=== PATIENT | female | born 1975 ===

== ENCOUNTER 2021-08-07 07:05 | Inpatient (IN) | payer BC ==
[2021-08-07] MEDS ORDERED: Celecoxib 200 MG Cap PO ONE (07:30)
[2021-08-07] MEDS ORDERED: Scopolamine 1.5 MG Transdermal Patch TOP ONE (07:30)
[2021-08-07] MEDS ORDERED: Acetaminophen 500 MG Tab PO ONE (07:30)
[2021-08-07] MEDS ORDERED: fentaNYL 250 MCG/5 ML SDV ONE (08:09)
[2021-08-07] MEDS ORDERED: Dexamethasone 4 MG/ML SDV ONE (08:09)
[2021-08-07] MEDS ORDERED: Rocuronium 50 MG/5 ML Vial ONE (08:09)
[2021-08-07] MEDS ORDERED: Neostigmine Methylsulfate 1 MG/ML 5 ML Syringe ONE (08:09)
[2021-08-07] MEDS ORDERED: Glycopyrrolate 0.2 MG/ML 5 ML MDV ONE (08:09)
[2021-08-07] MEDS ORDERED: Ondansetron 4 MG/2 ML SDV ONE (08:09)
[2021-08-07] MEDS ORDERED: Succinylcholine 200 MG/10 ML MDV ONE (08:09)
[2021-08-07] MEDS ORDERED: Propofol 200 MG/20 ML SDV ONE (08:09)
[2021-08-07] MEDS ORDERED: Lactated Ringers 1,000 ML ONE ×3 (08:09→10:01)
[2021-08-07] MEDS ORDERED: Midazolam 1 MG/ML 2 ML SDV ONE (08:10)
[2021-08-07] MEDS ORDERED: Dextrose 5%-Lactated Ringers 1,000 ML IV SCH (08:30)
[2021-08-07] MEDS ORDERED: cefOXitin 2 GM Vial ONE (08:45)
[2021-08-07] MEDS ORDERED: Ketamine 19 MG in Sodium Chloride 0.9% 19.81 ML IV SCH (08:45)
[2021-08-07] MEDS ORDERED: Albuterol/Ipratropium 3.0-0.5 MG/3 ML Neb Soln NEB ONE (08:45)
[2021-08-07] MEDS ORDERED: Magnesium Sulfate 3.5 GM in Sodium Chloride 0.9% 100 ML IV SCH (08:45)
[2021-08-07] MEDS ORDERED: Ketamine 500 MG/5 ML MDV IV SCH (08:45)
[2021-08-07] MEDS ORDERED: Magnesium Sulfate 3.8 GM in Sodium Chloride 0.9% 250 ML IV ONE (08:45)
[2021-08-07] MEDS ORDERED: cefOXitin 2 GM in Sodium Chloride 0.9% 50 ML IV ONE (08:45)
[2021-08-07] MEDS ORDERED: fentaNYL 100 MCG/2 ML SDV IVPUSH ONE (11:01)
[2021-08-07] MEDS ORDERED: hydrOXYzine HCL 100 MG/2 ML SDV IM ONE (11:01)
[2021-08-07] MEDS ORDERED: Cyclobenzaprine 10 MG Tab PO PRN (12:20)
[2021-08-07] MEDS ORDERED: Fluticasone Propionate Nasal Spray 16 GM Bottle NASBOTH PRN (12:30)
[2021-08-07] MEDS ORDERED: Ondansetron 4 MG/2 ML SDV IVPUSH PRN (13:00)
[2021-08-07] MEDS ORDERED: Albuterol/Ipratropium 3.0-0.5 MG/3 ML Neb Soln INH PRN (13:00)
[2021-08-07] MEDS ORDERED: HYDROmorphone 1 MG/ML Syringe IV PRN (13:00)
[2021-08-07] MEDS ORDERED: Labetalol 20 MG/4 ML Syringe IVPUSH PRN (13:00)
[2021-08-07] MEDS ORDERED: HYDROmorphone 0.5 MG/0.5 ML Syringe IVPUSH PRN (13:00)
[2021-08-07] MEDS ORDERED: hydrOXYzine HCL 100 MG/2 ML SDV IM PRN (13:00)
[2021-08-07] MEDS ORDERED: Metoclopramide 10 MG/2 ML SDV IVPUSH PRN (13:00)
[2021-08-07] MEDS ORDERED: Calcium Gluconate 10% 1 GM/10 ML SDV IVPUSH PRN (13:00)
[2021-08-07] MEDS ORDERED: Acetaminophen 500 MG Tab PO PRN (13:00)
[2021-08-07] MEDS ORDERED: diphenhydrAMINE 50 MG/ML SDV IVPUSH PRN (13:00)
[2021-08-07] MEDS ORDERED: traMADol 50 MG Tab PO PRN (13:00)
[2021-08-07] MEDS ORDERED: oxyCODONE 5 MG Tab PO PRN (13:00)
[2021-08-07] MEDS: cefOXitin 2 GM in Sodium Chloride 0.9% 50 ML IV SCH ×2 (14:25→21:50)
[2021-08-07] MEDS: Dextrose 5%-Lactated Ringers 1,000 ML IV SCH (14:26)
[2021-08-07] MEDS: Albuterol/Ipratropium 3.0-0.5 MG/3 ML Neb Soln INH SCH ×2 (14:44→21:50)
[2021-08-07] MEDS: Acetaminophen 500 MG Tab PO SCH (15:49)
[2021-08-07] MEDS ORDERED: MVI, Adult with Vitamin K 10 ML, Thiamine 200 MG, Zinc/Copper/Manganese/Selenium 1 ML i... IV SCH ×4 (16:00)
[2021-08-07] MEDS ORDERED: Pantoprazole 40 MG Vial IVPUSH SCH (16:00)
[2021-08-07] MEDS: Heparin Sodium 5,000 Units/ML Vial SUBCUT SCH (21:48)
[2021-08-07] MEDS: Oxybutynin 5 MG Tab PO SCH (21:51)
[2021-08-07] MEDS: Montelukast 10 MG Tab PO SCH (21:51)
[2021-08-08] MEDS: Acetaminophen 500 MG Tab PO SCH ×4 (00:53→23:42)
[2021-08-08] MEDS ORDERED: Iopamidol 612 MG/ML 50 ML SDV PO PRN (01:28)
[2021-08-08] MEDS: cefOXitin 2 GM in Sodium Chloride 0.9% 50 ML IV SCH ×2 (03:03→08:25)
[2021-08-08] MEDS: Dextrose 5%-Lactated Ringers 1,000 ML IV SCH ×2 (04:16→13:11)
[2021-08-08] MEDS: Albuterol/Ipratropium 3.0-0.5 MG/3 ML Neb Soln INH SCH ×4 (07:20→20:57)
--- NOTE | 2021-08-08 07:58 | CRLCR ---
For Patients: As a result of the Century Cures Act, medical imaging exams and procedure reports are released immediately into your electronic medical record. You may view this report before your referring provider. If you have questions, please contact your health care provider. Indication: Post bariatric surgery. Technique: Four views of the abdomen were obtained. The 1st is a christmas tree grower film. The 2nd demonstrates contrast within the distal esophagus and stomach the 3rd 4th film demonstrate progression of the contrast through the small bowel. Comparison: None Findings: Radiopaque foreign bodies identified in the left upper quadrant. It is uncertain if this is external or internal. This may represent a drain. Postoperative changes are identified at the GE junction. Surgical clips are identified in the right upper quadrant. Images demonstrate no definite leak of contrast. Impression: No leak identified. Dictated by Uzma Carmona MD @ 08/08/2021 7:56:54 AM (Electronically Signed)
[2021-08-08] MEDS: Escitalopram 10 MG Tab PO SCH (08:00)
[2021-08-08] MEDS: Celecoxib 200 MG Cap PO SCH ×2 (08:00→20:57)
[2021-08-08] MEDS: SCOPOLAMINE PATCH CHECK TOP SCH (08:01)
[2021-08-08] MEDS: Oxybutynin 5 MG Tab PO SCH ×2 (08:02→20:57)
[2021-08-08] MEDS: Lisinopril 10 MG Tab PO SCH (08:02)
[2021-08-08] MEDS: buPROPion 150 MG Tab.ER PO SCH (08:04)
[2021-08-08] MEDS: Heparin Sodium 5,000 Units/ML Vial SUBCUT SCH ×2 (08:22→19:38)
[2021-08-08] MEDS ORDERED: RYBELSUS 7 MG PO SCH (09:00)
[2021-08-08] MEDS ORDERED: MVI, Adult with Vitamin K 10 ML, Thiamine 200 MG, Zinc/Copper/Manganese/Selenium 1 ML i... IV SCH ×4 (16:00)
[2021-08-08] MEDS ORDERED: Pantoprazole 40 MG Delayed-Release Granules 1 Packet PO SCH (16:00)
[2021-08-08] MEDS: Montelukast 10 MG Tab PO SCH (20:57)
[2021-08-09] MEDS: Dextrose 5%-Lactated Ringers 1,000 ML IV SCH (03:32)
[2021-08-09] MEDS: Albuterol/Ipratropium 3.0-0.5 MG/3 ML Neb Soln INH SCH (07:20)
[2021-08-09] MEDS ORDERED: RYBELSUS 7 MG PO SCH (07:30)
[2021-08-09] MEDS ORDERED: Cyanocobalamin (Vitamin B12) 1,000 MCG/ML SDV IM ONE (09:00)
[2021-08-09] MEDS: Heparin Sodium 5,000 Units/ML Vial SUBCUT SCH (09:00)
[2021-08-09] MEDS ORDERED: Magnesium Hydroxide 400 MG/5 ML Susp 30 ML Cup PO ONE (09:00)
[2021-08-09] MEDS: Acetaminophen 500 MG Tab PO SCH (09:01)
[2021-08-09] MEDS: Celecoxib 200 MG Cap PO SCH (09:02)
[2021-08-09] MEDS: Escitalopram 10 MG Tab PO SCH (09:02)
[2021-08-09] MEDS: Oxybutynin 5 MG Tab PO SCH (09:02)
[2021-08-09] MEDS: Lisinopril 10 MG Tab PO SCH (09:02)
[2021-08-09] MEDS: buPROPion 150 MG Tab.ER PO SCH (09:04)
[2021-08-09] MEDS: SCOPOLAMINE PATCH CHECK TOP SCH (09:42)
--- NOTE | 2021-08-10 12:45 | PN ---
DATE OF SERVICE: 08/08/2021 The patient is postop day 1 from a laparoscopic sleeve gastrectomy along with repair of a diaphragmatic hernia with mesh. Clinically, she is doing well. The upper GI x-ray looks good and we will go over to a step-2 diet today and she is being switched over to oral pain medication. She will likely be ready for discharge home tomorrow. Crispin House MD /[id number]
--- NOTE | 2021-08-10 13:40 | PCM.EKG ---
#1 Interpretation EKG Date: 08/07/21 Time: 07:21 Rhythm: NSR Rate (Beats/Min): 88 Allison: Normal P-Wave: Present QRS: Normal ST-T: Normal QT: Normal AK/PQ Interval: normal Comparison: NA - No Prior EKG
--- NOTE | 2021-08-10 14:42 | DISCH ---
FINAL DIAGNOSES: 1. Morbid obesity. 2. Large paraesophageal diaphragmatic hernia. 3. Mediastinal lipoma. 4. Marked hepatomegaly. 5. History of hypertension. 6. History of depression and anxiety. 7. Polycystic ovary syndrome. 8. History of asthma. OPERATIVE PROCEDURES: Done on 08/07/2021, diagnostic laparoscopy: 1. Laparoscopic sleeve gastrectomy. 2. Repair of large paraesophageal diaphragmatic hernia with mesh. 3. Excision of mediastinal lipoma. 4. David-Cut needle liver biopsy. SUMMARY: This is a 46-year-old female presenting with longstanding morbid obesity and increasingly significant comorbidities. After preoperative evaluation and discussion, she wished to proceed with a sleeve gastrectomy. This was done on the date of admission with the above additional procedures. The patient had quite a large diaphragmatic hernia, with inhalation, likely resulting in one-quarter to one-third of the stomach going up into the chest. Given this, this was repaired with a form of posterior crural repair augmented with some dissolvable mesh to limit her problems with postoperative reflux. Otherwise, the patient has had unremarkable postoperative course, she did have a little bit of muscle spasms, and will be sent home with Flexeril 10 mg p.o. q.8 hours p.r.n. Otherwise, she is only requiring Tylenol and Celebrex for pain, and she will be continued on her usual medications otherwise and be instructed to stay on a liquid diet for 1 month postoperatively. She will follow up with Sara Green in [facility] on 08/17/2021. /[id number]
--- NOTE | 2021-08-11 07:02 | OR ---
DATE OF PROCEDURE: 08/07/2021 SURGEON: Crispin House MD PREOPERATIVE DIAGNOSIS: Morbid obesity. POSTOPERATIVE DIAGNOSES: 1. Morbid obesity. 2. Large paraesophageal diaphragmatic hernia. 3. Mediastinal lipoma. 4. Marked hepatomegaly. OPERATIVE PROCEDURES: Diagnostic laparoscopy with: 1. Laparoscopic sleeve gastrectomy (66301). 2. Repair of large paraesophageal diaphragmatic hernia with mesh (87810). 3. Excision of mediastinal lipoma (60499). 4. David-Cut needle liver biopsy (85462). ANESTHESIA: General. AUTOMOBILE SALES REPRESENTATIVE: Sara Green PA-C INDICATIONS FOR PROCEDURE: This is a 46-year-old presenting with longstanding morbid obesity and increasingly significant comorbidities. After preoperative evaluation and discussion, she wished to proceed with a sleeve gastrectomy. Potential risks of the procedure including bleeding, infection, leaks from various GI tract closures, problems with bowel obstruction over time as well as possibility of cardiopulmonary, septic, or hemorrhagic complications leading to were discussed, and the patient wishes to proceed. DETAILS OF PROCEDURE: The patient was taken to the operating room and placed in a supine position. After general endotracheal anesthesia was induced, she was converted to a lithotomy position and the abdomen prepped and draped. 15 cm inferior and 5 cm left of the xiphoid process, a transverse incision was made and carried down through the skin and subcutaneous tissue, and the peritoneal cavity entered under direct vision with an Optiview trocar. Laparoscope was reinserted. No underlying trocar insertion site injuries were evident. Bilateral transversus abdominis plane blocks were then placed and 5 additional trocars were placed across the upper and mid abdomen. The patient was noted to have a moderate-sized degree of hepatomegaly with liver being mildly grossly fatty infiltrated. David-Cut needle biopsy was obtained from left lobe of liver. Minimal bleeding from the biopsy sites was controlled with electrocautery. Following this, the liver was retracted anteriorly. The patient was noted to have quite large paraesophageal hernia. It would be estimated with inhalation, she would have probably between a quarter and a third of the stomach going up into the chest. Given this, we then proceeded with a formal crural repair. The hernia was reduced and the peritoneum overlying the initially incised. This then allowed dissection in the area adjacent to the crura and esophagus on each side and a retrocrural window then created. The patient was noted to have a fairly large mediastinal lipoma which was then removed to facilitate a more adequate crural repair. The crural repair was then accomplished posteriorly with some 0 Ethibond sutures reinforced with PTFE pledgets. Phasix ST mesh then cut into a horseshoe configuration was then placed over the crural repair and then affixed to the crura on each side adjacent to the esophagus with some titanium tacking screws. At this point, the diaphragmatic hernia repair appeared to be satisfactorily completed. The omentum beginning in the mid greater curvature was then divided with Harmonic Scalpel. This dissection was continued proximally up to include the highest and posterior short gastric vessels. Dissected the stomach further away from the stomach in the area of the esophagogastric junction and then the omental division continued to a 0.2 cm proximal to the pylorus. The initial staple line for the sleeve gastrectomy was then mapped out with electrocautery beginning 2 cm proximal to the pylorus, continued underneath the incisura angularis leaving enough room in that area to avoid kinking of the stomach as it was divided underneath the incisura angularis. First 3 firings of ANNAMARIE hollis using nonreinforced black loads were then placed. Following this, a 32-St Helenian suction tube was then placed orally per Anesthesia and positioned along the lesser curvature of the stomach, which was brought up snugly against the lesser curvature and suction applied. The remainder of the sleeve gastrectomy was then accomplished with combination of reinforced black and purple loads up to and through the area just adjacent to the esophagogastric junction. Stomach specimen was then retracted off the side. The staple lines were inspected and were all found to be intact. The staple line was then reinforced with some fibrin sealant focusing on the area of esophagogastric junction and the omentum was then pulled up into that area over the esophagogastric junction as well, where it remained fixed with the aid of fibrin sealant. The catheter was then taken off suction and the stomach inflated with air to the point the sleeve gastrectomy was well distended. No leaks or bleeding was noted. At that point, no further problems were identified. Gastric specimen was retrieved through the left lateral trocar site and then a single Dar-Gaspar drain taken out through the left lateral trocar site and positioned adjacent to the gastrojejunostomy, from there up into the splenic fossa. The trocars were then removed and peritoneal cavity deflated. Incisions were closed with some 4-0 Vicryl skin stitch. Drain affixed with some 4-0 stitch as well and the patient was taken to the recovery room in satisfactory condition. Physician environmental engineering assistant, Sara Green, played an essential role in assisting in this case, helping to position the patient, retract structures as needed, as well as suturing and cutting sutures when indicated. Her presence improved patient safety and decreased operative time. Crispin House MD /[id number]
== END 2021-08-09 10:41 | disposition home or self-care (01) | DRG 403 ==
LOC: JP.SDS 07:05 → EDSTATUS 07:15 → JP.MS 11:37
PROVIDERS: ADMIT Surgery; ATTEND Surgery
PROC: 0DB64Z3 Excision of Stomach, Percutaneous Endoscopic Approach, Vertical (ICD-10-PCS; principal; 2021-08-07)
PROC: 0FB24ZX Excision of Left Lobe Liver, Percutaneous Endoscopic Approach, Diagnostic (ICD-10-PCS; 2021-08-07)
PROC: 0JB63ZZ Excision of Chest Subcutaneous Tissue and Fascia, Percutaneous Approach (ICD-10-PCS; 2021-08-07)
PROC: 0BUT4JZ Supplement Diaphragm with Synthetic Substitute, Percutaneous Endoscopic Approach (ICD-10-PCS; 2021-08-07)
DX: E66.01 Morbid (severe) obesity due to excess calories (principal); K44.9 Diaphragmatic hernia without obstruction or gangrene; R16.0 Hepatomegaly, not elsewhere classified; D17.1 Benign lipomatous neoplasm of skin and subcutaneous tissue of trunk; K21.9 Gastro-esophageal reflux disease without esophagitis; I10 Essential (primary) hypertension; E28.2 Polycystic ovarian syndrome; J45.909 Unspecified asthma, uncomplicated; F41.9 Anxiety disorder, unspecified; F32.A Depression, unspecified; Z88.2 Allergy status to sulfonamides; Z68.39 Body mass index [BMI] 39.0-39.9, adult
CPT/HCPCS: 36415; 74240; 84703; 86850; 86900; 86901; 93005; 94640; 94762; A9270-GY; C1713; C1781; C9113; J0171; J0330; J0694; J1100; J1644; J2250; J2405; J2704; J2710; J2795; J3010; J3410; J3411; J3420; J3475; J3490; J7050; J7120; J7121; J7620-GY; Q9967